=== PATIENT | female | born 1980 | race Caucasian/White ===

== ENCOUNTER 2017-04-29 19:09 | Emergency (ER) | payer OTHER ==
[~2017-04-29] VITALS: Ht 172.7 cm; Wt 77.1 kg
[~2017-04-29 19:09] MED LIST: PNV1TABL25 PO
--- NOTE | 2017-04-29 19:17 | PHYS DOC ---
Adult General Chief Complaint Chief Complaint: back injury HPI HPI Patient is a 37 year old female who presents with neck and back pain after diving into a 5 foot swelling pool. Patient's in otherwise healthy female who was playing at the edge of the pool with her son running back and forth and then she dove into the shallow end of the pool states it was 5 foot deep. She states she struck the bottom of the pool with the top of her head. She denies any loss of consciousness. She states she has severe neck and pain between her shoulder blades. She states she can fill her feet move her feet wiggle her toes arms ears as well. She states she does have a history of anxiety but isn't taking anything for her anxiety. She arrives a c-collar in place via EMS. Review of Systems Review of Systems Constitutional: Denies fever or chills [] Eyes: Denies change in visual acuity, redness, or eye pain [] HENT: Denies nasal congestion or sore throat [] Respiratory: Denies cough or shortness of breath [] Cardiovascular: No additional information not addressed in HPI [] GI: Denies abdominal pain, nausea, vomiting, bloody stools or diarrhea [] : Denies dysuria or hematuria [] Musculoskeletal: Positive for back pain Integument: Denies rash or skin lesions [] Neurologic: Denies headache, focal weakness or sensory changes [] Endocrine: Denies polyuria or polydipsia [] Current Medications Current Medications Current Medications Medications (Trade) Dose Ordered Sig/Sunshine Start Time Stop Time Status Last Admin Dose Admin Fentanyl Citrate (Fentanyl 2ml Vial) 50 mcg PRN Q15MIN PRN 04/29/17 19:30 04/30/17 19:29 04/29/17 21:50 50 MCG Info (Do NOT chart on this entry -- for MONITORING) 1 each PRN DAILY PRN 04/29/17 20:00 05/01/17 19:59 Iohexol (Omnipaque 300 Mg/ml) 75 ml 1X ONCE 04/29/17 19:45 04/29/17 19:49 DC 04/29/17 20:52 75 ML Lorazepam (Ativan) 1 mg 1X ONCE 04/29/17 20:00 04/29/17 20:01 DC 04/29/17 19:55 1 MG Morphine Sulfate 4 mg 1X ONCE 04/29/17 23:30 04/29/17 23:31 DC 04/29/17 23:21 4 MG Ondansetron HCl (Zofran) 4 mg 1X ONCE 04/30/17 00:00 04/30/17 00:01 DC Sodium Chloride 1,000 ml @ 1,000 mls/hr 1X ONCE 04/29/17 21:30 04/29/17 22:29 DC 04/29/17 21:45 1,000 MLS/HR Allergies Allergies Allergies Coded Allergies Type Severity Reaction Last Updated Verified No Known Drug Allergies 02/02/15 No Physical Exam Physical Exam Constitutional: Well developed, well nourished, no acute distress, non-toxic appearance. [] HENT: Normocephalic, bilateral external ears normal, oropharynx moist, no oral exudates, nose normal. Superior mild scalp hematoma appreciated, no deformity or lacerations appreciated. Eyes: PERRLA, EOMI, conjunctiva normal, no discharge. [] Neck: C-collar in place, no stridor. [] Cardiovascular:Heart rate regular rhythm, no murmur [] Lungs & Thorax: Bilateral breath sounds clear to auscultation [] Abdomen: Bowel sounds normal, soft, no tenderness, no masses, no pulsatile masses. [] Skin: Warm, dry, no erythema, no rash. [] Back: No step-offs noted, tender palpation midline to cervical and thoracic spine, no CVA tenderness. [] Extremities: No tenderness, no cyanosis, no clubbing, ROM intact, no edema. [] Neurologic: Alert and oriented X 3, normal motor function, normal sensory function, no focal deficits noted. [] Psychologic: Affect normal, judgement normal, mood normal. [] Current Patient Data Vital Signs Vital Signs Date Time Temp Pulse Resp B/P (MAP) Pulse Ox O2 Delivery O2 Flow Rate FiO2 04/29/17 21:50 98 Room Air 04/29/17 21:29 92 20 150/84 (106) 04/29/17 19:10 97.7 97.7 Lab Values Laboratory Tests Test 04/29/17 19:23 04/29/17 19:45 04/29/17 20:11 White Blood Count 4.3 x10^3/uL (4.0-11.0) Red Blood Count 4.09 x10^6/uL (3.50-5.40) Hemoglobin 13.5 g/dL (12.0-15.5) Hematocrit 40.0 % (36.0-47.0) Mean Corpuscular Volume 98 fL (79-100) Mean Corpuscular Hemoglobin 33 pg (25-35) Mean Corpuscular Hemoglobin Concent 34 g/dL (31-37) Red Cell Distribution Width 13.4 % (11.5-14.5) Platelet Count 235 x10^3/uL (140-400) Neutrophils (%) (Auto) 61 % (31-73) Lymphocytes (%) (Auto) 26 % (24-48) Monocytes (%) (Auto) 10 % (0-9) H Eosinophils (%) (Auto) 2 % (0-3) Basophils (%) (Auto) 1 % (0-3) Neutrophils # (Auto) 2.6 x10^3uL (1.8-7.7) Lymphocytes # (Auto) 1.1 x10^3/uL (1.0-4.8) Monocytes # (Auto) 0.4 x10^3/uL (0.0-1.1) Eosinophils # (Auto) 0.1 x10^3/uL (0.0-0.7) Basophils # (Auto) 0.0 x10^3/uL (0.0-0.2) Prothrombin Time 13.2 SEC (11.7-14.0) Prothrombin Time INR 1.1 (0.8-1.1) PTT 27 SEC (24-38) Sodium Level 143 mmol/L (136-145) Potassium Level 3.4 mmol/L (3.5-5.1) L Chloride Level 105 mmol/L (98-107) Carbon Dioxide Level 27 mmol/L (21-32) Anion Gap 11 (6-14) Blood Urea Nitrogen 7 mg/dL (7-20) Creatinine 0.8 mg/dL (0.6-1.0) Estimated GFR (Cockcroft-Gault) 81.6 Glucose Level 99 mg/dL (70-99) Calcium Level 8.5 mg/dL (8.5-10.1) Total Bilirubin 0.7 mg/dL (0.2-1.0) Direct Bilirubin 0.2 mg/dL (0.0-0.2) Aspartate Amino Transferase (AST) 136 U/L (15-37) H Alanine Aminotransferase (ALT) 144 U/L (14-59) H Alkaline Phosphatase 58 U/L (46-116) Total Protein 7.2 g/dL (6.4-8.2) Albumin 3.4 g/dL (3.4-5.0) Amylase Level 36 U/L (25-115) Lipase 177 U/L (73-393) Ethyl Alcohol Level 183 mg/dL (0-10) H Lactic Acid Level 2.6 mmol/L (0.4-2.0) H Urine Collection Type Unknown Urine Color Yellow Urine Clarity Clear Urine pH 6.5 Urine Specific [place]lin <=1.005 Urine Protein Negative mg/dL (NEG-TRACE) Urine Glucose (UA) Negative mg/dL (NEG) Urine Ketones (Stick) Negative mg/dL (NEG) Urine Blood Negative (NEG) Urine Nitrite Negative (NEG) Urine Bilirubin Negative (NEG) Urine Urobilinogen Dipstick 0.2 mg/dL (0.2 mg/dL) Urine Leukocyte Esterase Negative (NEG) Urine RBC Occ /HPF (0-2) Urine WBC 1-4 /HPF (0-4) Urine Squamous Epithelial Cells Occ /LPF Urine Bacteria 0 /HPF (0-FEW) Urine Opiates Screen Neg (NEG) Urine Methadone Screen Neg (NEG) Urine Barbiturates Neg (NEG) Urine Phencyclidine Screen Neg (NEG) Urine Amphetamine/Methamphetamine Neg (NEG) Urine Benzodiazepines Screen Neg (NEG) Urine Cocaine Screen Neg (NEG) Urine Cannabinoids Screen Neg (NEG) Urine Ethyl Alcohol Pos (NEG) Laboratory Tests 04/29/17 19:23 Laboratory Tests 04/29/17 19:23 EKG EKG EKG shows sinus rhythm rate [address] elevations, T-wave inversion in lead 3, normal axis, QTC 420 ms, as interpreted by me. Radiology/Procedures Radiology/Procedures [facility] [address] [place] [address] [facility] [address] [place] [address] IMAGING REPORT Signed PATIENT: ANNIE NORIEGA ACCOUNT: [id number] : 1980 LOCATION: ER AGE: 37 SEX: F EXAM STATUS: REG ER ORD. PHYSICIAN: YANCI COLVIN MD REASON: fall with neck pain PROCEDURE: CT HEAD AND CERVICAL SPINE WO ADDENDUM Correction: There is an acute, displaced C7 spinous process fracture. There is no evidence of involvement of the C7 vertebral body. Electronically signed by: Aly Staley MD (04/29/2017 10:15 PM) DICTATED AND SIGNED BY: ALY STALEY MD DATE: 04/29/172212 CC: YANCI COLVIN MD; UNKNOWN PCP NAME ~ CT head without intravenous contrast History: Fell head first into 5 foot pool, pain. Comparison: None. Technique: Axial images are obtained of the head from the skull base through the vertex without IV contrast. Exposure: One or more of the following individualized dose reduction techniques were utilized for this examination: 1. Automated exposure control 2. Adjustment of the mA and/or kV according to patient size 3. Use of iterative reconstruction technique Findings: The ventricles are appropriate in size, shape, and location for the patient's age. No obvious intracranial mass, mass-effect, midline shift, hemorrhage or obvious acute infarction is identified. Basilar cisterns are patent. Bone windows demonstrate no acute calvarial abnormality. The visualized paranasal sinuses appear clear. Impression: 1. No acute intracranial process. CT cervical spine Comparison: None. Technique: Noncontrast CT of the cervical spine was performed using helical technique. Axial, sagittal, coronal reconstructions were obtained. Exposure: One or more of the following individualized dose reduction techniques were utilized for this examination: 1. Automated exposure control 2. Adjustment of the mA and/or kV according to patient size 3. Use of iterative reconstruction technique Findings: There is no evidence of acute fracture or acute malalignment involving the cervical spine. No prevertebral soft tissue swelling is identified. Impression: No evidence of acute traumatic injury involving the cervical spine. Electronically signed by: Aly Staley MD (04/29/2017 10:04 PM) DICTATED and SIGNED BY: ALY STALEY MD DATE: 04/29/172200 CC: YANCI COLVIN MD; UNKNOWN PCP NAME ~ [facility] [address] [place] [address] IMAGING REPORT Signed PATIENT: ANNIE NORIEGA ACCOUNT: [id number] : 1980 LOCATION: ER AGE: 37 SEX: F EXAM STATUS: REG ER ORD. PHYSICIAN: YANCI COLVIN MD REASON: fall with neck pain PROCEDURE: CT CHEST ABD PELVIS W/CONTRAST CT Chest Abdomen Pelvis with Intravenous Contrast: History: Fell head first into 5 foot pool, pain. Comparison: None. Technique: After administration of intravenous contrast, 75 mL of Omnipaque 300, CT of the chest, abdomen, and pelvis was performed from the lung apices through the ischial tuberosities. Exposure: One or more of the following individualized dose reduction techniques were utilized for this examination: 1. Automated exposure control 2. Adjustment of the mA and/or kV according to patient size 3. Use of iterative reconstruction technique Findings: Evaluation of enteric structures may be limited by lack of oral contrast. Visualized thyroid is symmetric. No mediastinal lymphadenopathy is seen. Thoracic aorta is without evidence of a dissection. Heart and pericardium are unremarkable. No mediastinal lymphadenopathy is seen. Trachea and mainstem bronchi appear patent. Scattered atelectasis is seen. No acute air space disease seen. No pneumothorax or pleural effusion is identified. Fatty liver disease is seen. Gallbladder, spleen, pancreas, and bilateral adrenal glands are unremarkable. Bilateral kidneys enhance symmetrically. Urinary bladder is unremarkable. Uterus and adnexa have unremarkable CT appearance. No pelvic fracture is identified. Impression: No acute organ injury identified in the chest, abdomen, or pelvis. Electronically signed by: Aly Staley MD (04/29/2017 10:10 PM) DICTATED and SIGNED BY: ALY STALEY MD DATE: 04/29/172204 CC: YANCI COLVIN MD; UNKNOWN PCP NAME ~ [facility] [address] [place] [address] IMAGING REPORT Signed PATIENT: ANNIE NORIEGA ACCOUNT: [id number] : 1980 LOCATION: ER AGE: 37 SEX: F EXAM STATUS: REG ER ORD. PHYSICIAN: YANCI COLVIN MD REASON: PROCEDURE: CT LUMBAR SPINE RECONSTRUCTION ADDENDUM Corrected findings and impression are as follows: Superior endplates of T3, T4, T6, and T7 demonstrates acute mild compression fractures. No extension into the posterior elements is seen. Nondisplaced right medial first rib fracture is seen. There is no evidence of acute traumatic injury involving the lumbar spine. Alignment appears anatomic. Impression: 1. Acute, mild superior endplate compression fractures of T3, T4, T6, and T7. 2. No evidence of acute traumatic injury to the lumbar spine. 3. Acute nondisplaced medial right first rib fracture. Electronically signed by: Aly Staley MD (04/29/2017 10:39 PM) DICTATED AND SIGNED BY: ALY STALEY MD DATE: 04/29/172236 CC: YANCI COLVIN MD; UNKNOWN PCP NAME ~ CT of the thoracic and lumbar spine History: Fell head first into 5 foot pool, pain. Technique: Reconstructions of the thoracic and lumbar spine were made from CT of the chest, abdomen, and pelvis performed with intravenous contrast at the same time. Axial, sagittal, and coronal 2-D reconstructions were obtained of both the thoracic and lumbar spine. Exposure: One or more of the following individualized dose reduction techniques were utilized for this examination: 1. Automated exposure control 2. Adjustment of the mA and/or kV according to patient size 3. Use of iterative reconstruction technique Findings: Superior endplates of C3, C4, C6, and C7 demonstrates acute mild compression fractures. No extension into the posterior elements is seen. Nondisplaced right medial first rib fracture is seen. There is no evidence of acute traumatic injury involving the lumbar spine. Alignment appears anatomic. Impression: 1. Acute, mild superior endplate compression fractures of C3, C4, C6, and C7. 2. No evidence of acute traumatic injury to the lumbar spine. 3. Acute nondisplaced medial right first rib fracture. Electronically signed by: Aly Staley MD (04/29/2017 10:22 PM) DICTATED and SIGNED BY: ALY STALEY MD DATE: 04/29/172209 CC: YANCI COLVIN MD; UNKNOWN PCP NAME ~ Impressions: C7 spinous process fracture Right first rib nondisplaced fracture T3, T4, T6, T7 endplate fractures Alcohol abuse and intoxication Course & Med Decision Making Course & Med Decision Making Pertinent Labs and Imaging studies reviewed. (See chart for details) Patient arrived via EMS with c-collar in place. C-collar was left in place during the entire visit. CT scan head, cervical spine, chest abdomen pelvis with reconsult of her thoracic and lumbar spines were performed. It was noted that she had a C7 spinous process fracture, T3, 4, 6, 7 endplate fractures. Patient was in spinal precautions entire time. She was given antinausea meds and fentanyl in addition to morphine for pain control. She also received Ativan for anxiety. Spoke with our neurosurgeon Dr. Palmer who defers to the [facility] trauma [facility] for further evaluation treatment. Spoke with Lola and the transfer team and Dr. Severino who accepts the patient. They were informed of the patient's vitals, current condition, physical exam, CT scan findings and labs. Patient is in stable condition and agreeable being transferred by EMS. Dragon Disclaimer Dragon Disclaimer This electronic medical record was generated, in whole or in part, using a voice recognition dictation system. Departure Departure Impression: Primary Impression: Spine fracture Disposition: 05 TRANSFER OTHER Condition: STABLE Referrals: NO PCP (PCP) Problem Qualifiers Primary Impression: Spine fracture Encounter type: initial encounter Fracture of vertebra location: thoracic Thoracic vertebra fracture level: T3 Fracture type: closed Fracture morphology: other fracture Qualified Codes: S22.038A - Other fracture of third thoracic vertebra, initial encounter for closed fracture YANCI COLVIN MD Apr 29, 2017 19:16
[2017-04-29] MEDS ORDERED: IOHEXOL 300 MG/ML 75 ML VIAL IV ONE (19:45)
[2017-04-29 19:48] LABS: CALCIUM 8.5 mg/dL (8.5-10.1); CREATININE 0.8 mg/dL (0.6-1.0); GFR 81.6; POTASSIUM 3.4 mmol/L (3.5-5.1)
[2017-04-29 19:54] LABS: ALBUMIN 3.4 g/dL (3.4-5.0); DIRECT BILIRUBIN 0.2 mg/dL (0.0-0.2); TOTAL BILIRUBIN 0.7 mg/dL (0.2-1.0); TOTAL PROTEIN 7.2 g/dL (6.4-8.2)
[2017-04-29] MEDS: fentaNYL PF VIAL 100 MCG/2 ML VIAL IV PRN ×3 (19:55→21:50)
[2017-04-29] MEDS ORDERED: ONDANSETRON PF 4 MG/2 ML VIAL. ONE (19:56)
[2017-04-29 19:59] LABS: INR 1.1 (0.8-1.1); PROTHROMBIN TIME PATIENT 13.2 SEC (11.7-14.0)
[2017-04-29] MEDS ORDERED: CONTRAST GIVEN MC PRN (20:00)
[2017-04-29] MEDS ORDERED: ONDANSETRON PF 4 MG/2 ML VIAL. IV ONE (20:15)
[2017-04-29 20:26] LABS: BILIRUBIN,URINE NEGATIVE (NEG); GLUCOSE,URINE NEGATIVE (NEG); NITRITE,URINE NEGATIVE (NEG); PH,URINE 6.5; PROTEIN,URINE NEGATIVE (NEG-TRACE); UROBILINOGEN,URINE 0.2 mg/dL (0.2 mg/dL)
[2017-04-29 20:35] LABS: BARBITURATES NEG (NEG); BENZODIAZEPINES NEG (NEG); CANNABINOIDS NEG (NEG); COCAINE NEG (NEG); METHADONE NEG (NEG); OPIATES NEG (NEG); PHENCYCLIDINE NEG (NEG)
[2017-04-29 20:50] LABS: BACTERIA,URINE 0 /HPF (0-FEW); RBC,URINE OCC /HPF (0-2); SQUAMOUS EPITHELIAL CELL,UR OCC /LPF
[2017-04-29 21:10] LABS: BASO % 1 % (0-3); EOS % 2 % (0-3); HEMOGLOBIN 13.5 g/dL (12.0-15.5); LYMPH # 1.1 x10^3/uL (1.0-4.8); LYMPH % 26 % (24-48); MEAN CORPUSCULAR HEMOGLOBIN 33 pg (25-35); MEAN CORPUSCULAR HGB CONC 34 g/dL (31-37); MEAN CORPUSCULAR VOLUME 98 fL (79-100); MONO % 10 % (0-9); NEUT % 61 % (31-73); PLATELET COUNT 235 x10^3/uL (140-400); RED BLOOD COUNT 4.09 x10^6/uL (3.50-5.40); RED CELL DISTRIBUTION WIDTH 13.4 % (11.5-14.5); WHITE BLOOD COUNT 4.3 x10^3/uL (4.0-11.0)
[2017-04-29] MEDS ORDERED: IV NORMAL SALINE 1000ML BAG 1,000 ML IV ONE (21:30)
--- NOTE | 2017-04-29 22:08 | RAD ---
CT head without intravenous contrast History: Fell head first into 5 foot pool, pain. Comparison: None. Technique: Axial images are obtained of the head from the skull base through the vertex without IV contrast. Exposure: One or more of the following individualized dose reduction techniques were utilized for this examination: 1. Automated exposure control 2. Adjustment of the mA and/or kV according to patient size 3. Use of iterative reconstruction technique Findings: The ventricles are appropriate in size, shape, and location for the patient's age. No obvious intracranial mass, mass-effect, midline shift, hemorrhage or obvious acute infarction is identified. Basilar cisterns are patent. Bone windows demonstrate no acute calvarial abnormality. The visualized paranasal sinuses appear clear. Impression: 1. No acute intracranial process. CT cervical spine Comparison: None. Technique: Noncontrast CT of the cervical spine was performed using helical technique. Axial, sagittal, coronal reconstructions were obtained. Exposure: One or more of the following individualized dose reduction techniques were utilized for this examination: 1. Automated exposure control 2. Adjustment of the mA and/or kV according to patient size 3. Use of iterative reconstruction technique Findings: There is no evidence of acute fracture or acute malalignment involving the cervical spine. No prevertebral soft tissue swelling is identified. Impression: No evidence of acute traumatic injury involving the cervical spine. Electronically signed by: Aly Araujo MD (04/29/2017 10:04 PM)
--- NOTE | 2017-04-29 22:13 | RAD ---
CT Chest Abdomen Pelvis with Intravenous Contrast: History: Fell head first into 5 foot pool, pain. Comparison: None. Technique: After administration of intravenous contrast, 75 mL of Omnipaque 300, CT of the chest, abdomen, and pelvis was performed from the lung apices through the ischial tuberosities. Exposure: One or more of the following individualized dose reduction techniques were utilized for this examination: 1. Automated exposure control 2. Adjustment of the mA and/or kV according to patient size 3. Use of iterative reconstruction technique Findings: Evaluation of enteric structures may be limited by lack of oral contrast. Visualized thyroid is symmetric. No mediastinal lymphadenopathy is seen. Thoracic aorta is without evidence of a dissection. Heart and pericardium are unremarkable. No mediastinal lymphadenopathy is seen. Trachea and mainstem bronchi appear patent. Scattered atelectasis is seen. No acute air space disease seen. No pneumothorax or pleural effusion is identified. Fatty liver disease is seen. Gallbladder, spleen, pancreas, and bilateral adrenal glands are unremarkable. Bilateral kidneys enhance symmetrically. Urinary bladder is unremarkable. Uterus and adnexa have unremarkable CT appearance. No pelvic fracture is identified. Impression: No acute organ injury identified in the chest, abdomen, or pelvis. Electronically signed by: Aly Araujo MD (04/29/2017 10:10 PM)
--- NOTE | 2017-04-29 22:26 | RAD ---
CT of the thoracic and lumbar spine History: Fell head first into 5 foot pool, pain. Technique: Reconstructions of the thoracic and lumbar spine were made from CT of the chest, abdomen, and pelvis performed with intravenous contrast at the same time. Axial, sagittal, and coronal 2-D reconstructions were obtained of both the thoracic and lumbar spine. Exposure: One or more of the following individualized dose reduction techniques were utilized for this examination: 1. Automated exposure control 2. Adjustment of the mA and/or kV according to patient size 3. Use of iterative reconstruction technique Findings: Superior endplates of C3, C4, C6, and C7 demonstrates acute mild compression fractures. No extension into the posterior elements is seen. Nondisplaced right medial first rib fracture is seen. There is no evidence of acute traumatic injury involving the lumbar spine. Alignment appears anatomic. Impression: 1. Acute, mild superior endplate compression fractures of C3, C4, C6, and C7. 2. No evidence of acute traumatic injury to the lumbar spine. 3. Acute nondisplaced medial right first rib fracture. Electronically signed by: Aly Araujo MD (04/29/2017 10:22 PM)
[2017-04-29] MEDS ORDERED: MORPHINE SULFATE 4 MG/ML DISP.SYRIN. IV ONE (23:30)
[2017-04-30] MEDS ORDERED: ONDANSETRON PF 4 MG/2 ML VIAL. IV ONE
[2017-04-30 00:39] VITALS: BP 125/60
[2017-04-30] MEDS ORDERED: PROMETHAZINE IM 25 MG/ML VIAL IM ONE ×2 (00:50→01:00)
[2017-04-30] MEDS ORDERED: PROMETHAZINE 25 MG in IV NORMAL SALINE 50ML 50 ML IV ONE (01:00)
--- NOTE | 2017-04-30 06:25 | EKG ---
[facility] [address] [place] [address] Test Date: 2017-04-29 Test Time: 19:28:03 Pat Name: ANNIE NORIEGA Department: Room: Gender: F Rehab Physician: : 1980 Requested By: YANCI COLVIN Order Number: [id number] Reading MD: Arvind Ramsey Measurements Intervals [place] Rate: 65 P: 46 MN: 158 QRS: 40 QRSD: 86 T: 17 QT: 400 QTc: 421 Interpretive Statements SINUS RHYTHM Electronically Signed On 04-30-2017 9:43:42 CDT by Arvind Ramsey
== END 2017-04-30 00:59 | disposition short-term general hospital (02) ==
LOC: ER 19:09
DX: S12.201A Unspecified nondisplaced fracture of third cervical vertebra, initial encounter for closed fracture (principal); S12.301A Unspecified nondisplaced fracture of fourth cervical vertebra, initial encounter for closed fracture; S12.501A Unspecified nondisplaced fracture of sixth cervical vertebra, initial encounter for closed fracture; S12.601A Unspecified nondisplaced fracture of seventh cervical vertebra, initial encounter for closed fracture; S22.039A Unspecified fracture of third thoracic vertebra, initial encounter for closed fracture; S22.049A Unspecified fracture of fourth thoracic vertebra, initial encounter for closed fracture; S22.059A Unspecified fracture of T5-T6 vertebra, initial encounter for closed fracture; S22.069A Unspecified fracture of T7-T8 vertebra, initial encounter for closed fracture; S22.31XA Fracture of one rib, right side, initial encounter for closed fracture; W16.42XA Fall into unspecified water causing other injury, initial encounter; Y93.15 Activity, underwater diving and snorkeling; Y92.34 Swimming pool (public) as the place of occurrence of the external cause; Y99.8 Other external cause status
CPT/HCPCS: 36415; 70450; 71260; 72125; 74177; 80048; 80076; 80305; 80320; 81001; 81025; 82150; 83605; 83690; 85027; 85610; 85730; 86850; 86900; 86901; 93005; 96361; 96372; 96374; 96375; 96376; 99285; J2060; J2270; J2405; J2550; J3010; J7030; Q9967; G0480; G0481